=== PATIENT | female | born 1930 | race Caucasian/White ===

== ENCOUNTER 2017-03-21 15:27 | Emergency (ER) | payer MEDICARE ==
[~2017-03-21] VITALS: Ht 157.4 cm; Wt 52.2 kg
[~2017-03-21 15:27] MED LIST: ACTOS15 MG PO; ASPI-COR81 M1 PO; ASPIRIN; CALCIUM + VITA1 EAC2 PO; CAPOZIDE PO; CAPTOPRIL25 MG PO; CENTRUM SILVER1 EACH PO; CIPRO500 MG PO; GLUCOPHAGE; HUMULIN 70 U/ML10 ML SC; HUMULIN 70100 UNIT/1 SQ; HYDROCHLOROTH12.5 MG PO; INSULIN; LEVEMIR100 U/ML SC; METFORMIN500 MG PO; METOPROLOL SR100 MG PO; MINIPRESS; MINIPRESS1 M1 PO; OCUVITE1 TA1 PO; PRAVACHOL80 MG PO; ZOCOR; ZOCOR10 MG PO; [UNRECOGNIZED DRUG - OTHER]
[2017-03-21 16:12] LABS: BASO % 0.2 % (0.0-1.0); HEMATOCRIT 31.5 % (37.0-47.0); HEMOGLOBIN 10.9 g/dl (12.0-16.0); LYMPH # 0.7 10*3/uL (1.3-4.4); LYMPH % 9.1 % (27.0-41.0); MEAN CELL VOLUME 87.5 fl (81.0-99.0); MEAN CORPUSCULAR HGB 30.3 pg (27.0-31.0); MEAN CORPUSCULAR HGB CONC 34.6 g/dl (33.0-37.0); MEAN PLATELET VOLUME 10.4 fl (9.6-12.3); MONO # 0.6 10*3/uL (0.1-1.0); MONO % 7.5 % (3.0-9.0); NEUT # 6.6 10*3/uL (2.3-7.9); NEUT % 82.7 % (47.0-73.0); PLATELET COUNT AUTOMATED 178 10*3/uL (130-400); RED CELL DISTRI WIDTH 13.2 % (0-14.5)
[2017-03-21 16:24] LABS: ACT PARTIAL THROMBO TIME 26.3 SECONDS (20.8-31.5); INTERNATIONAL NORM RATIO 1.1 (2.0-3.5)
[2017-03-21 16:28] LABS: ALBUMIN 3.6 gm/dl (3.1-4.5); ALKALINE PHOSPHATASE 31 U/L (45-117); BUN 25 mg/dl (7-24); CHLORIDE 91 mmol/L (98-107); CPK 869 U/L (26-192); CREATININE 1.35 mg/dL (0.55-1.02); LIPASE 152 U/L (73-393); MAGNESIUM 1.6 mg/dL (1.5-2.1); POTASSIUM 3.7 mmol/L (3.5-5.1); SGOT/AST 84 IU/L (3-35); SGPT/ALT 47 U/L (12-78); SODIUM 130 mmol/L (136-145); TOTAL PROTEIN 6.6 gm/dL (6.4-8.2)
[2017-03-21 16:30] LABS: CKMB 51.9 ng/ml (0.5-3.6)
[2017-03-21 17:04] LABS: BILIRUBIN NEGATIVE (NEGATIVE); BLOOD 2+ (NEGATIVE); CLARITY CLOUDY (CLEAR); COLOR YELLOW (YELLOW); GLUCOSE TRACE (NEGATIVE); KETONE 1+ (NEGATIVE); LEUKO ESTERASE 3+ (NEGATIVE); NITRITE NEGATIVE (NEGATIVE); SPECIFIC GRAVITY 1.025 (1.005-1.030); UROBILINOGEN 0.2 E.U./dl (0.2-1.0)
[2017-03-21 17:10] LABS: BACTERIA 4+; RBC TNTC rbc/hpf (0-2); WBC TNTC wbc/hpf (0-5)
[2017-03-21 17:11] LABS: MUCOUS TRACE
[2017-03-21 19:15] VITALS: BP 105/33
== END 2017-03-21 22:22 | disposition short-term general hospital (02) ==
LOC: ED 15:27
PROVIDERS: Emergency Medicine
DX: I21.4 Non-ST elevation (NSTEMI) myocardial infarction (principal); N39.0 Urinary tract infection, site not specified; Z79.82 Long term (current) use of aspirin; Z79.899 Other long term (current) drug therapy

== ENCOUNTER 2017-05-16 18:24 | Inpatient (IN) | payer MEDICARE ==
[~2017-05-16] VITALS: Ht 157.4 cm; Wt 48.3 kg
--- NOTE | ~2017-05-16 | DS ---
[place], [place] DISCHARGE SUMMARY NAME: NGA GARAY [facility] #: [id number] UNIT #: [id number] ROOM: 422 DOCTOR: BAKARI PICKERING MD BIRTHDATE: [birth year] DOS: 05/20/2017 DIAGNOSES: 1. Diarrhea, noninfectious, possibly stress related. 2. Elevated troponin with history of recent ST elevation IN and a negative stress test in March of 2017 at [facility]. 3. Age-related cognitive decline. 4. Lactic acidosis from metformin, sepsis has been ruled out. 5. Type 2 diabetes mellitus, insulin-dependent, poorly controlled. 6. Benign hypertension. 7. History of carotid atherosclerosis, status post carotid endarterectomy. HOSPITAL COURSE: This patient is very well known to us. She was away on a trip to [facility]. Shortly after she got there, she had significant diarrhea and increased confusion, was admitted to a hospital in [facility], thought to have a UTI and was given IV fluids and adjustments in her diabetic medications. She was brought back to [facility] and admitted to the hospital on 16. After admission, the patient was placed on IV hydration for a short time. Troponin was elevated. Cardiology consultation was obtained. Lactic acidosis was noted and this could be from the metformin that she is on. Metformin was discontinued. Adjustments in medications were made. The patient is overall much improved. She is quite forgetful, but not confused. Echocardiogram showed normal LV function with evidence of tricuspid regurg and mitral regurg and concentric LVH. ESR is normal. Stool cultures and C. difficile titers have all come back negative. The patient is overall stable. Social service has been consulted for skilled placement. PT/OT has worked with her and feels that the patient is a candidate for fpc home. The plan is to discharge her to [facility] today. DISCHARGE MEDICATIONS: Tradjenta 5 mg at noon, 70/30 insulin 15 units in the morning and 10 units in the evening, that medication is only for 4 more days, Zocor 20 daily, Minipress 1 mg t.i.d., Protonix 40 daily, metoprolol 25 b.i.d., Plavix 75 daily, aspirin 81 mg daily. DISCHARGE INSTRUCTIONS : ADA diet, 1800 calorie. PT, OT consultation. Blood sugars to be checked twice daily, coverage scale. [place], [place] DISCHARGE SUMMARY NAME: NGA GARAY UNIT #: [id number] ROOM: 422 DOCTOR: BAKARI PICKERING MD BIRTHDATE: [birth year] BAKARI PICKERING MD CM:DISCHOLLIE [id number] BAKARI PICKERING MD 05/20/17 1252 interface
--- NOTE | ~2017-05-16 | PR ---
[place], [place] PROGRESS NOTE NAME: NGA GARAY [facility] #: [id number] UNIT #: [id number] ROOM: 422 DOCTOR: RAD BAEZMURRAYSUZY BIRTHDATE: [birth year] DOS: SUBJECTIVE: The patient is sitting up in chair. Denies any specific cardiac complaint. No chest pain. No chest pressure. No heaviness. No tightness. No symptomatic palpitation. OBJECTIVE: VITAL SIGNS: Blood pressure 171/51, previous blood pressure 115/52 and prior to that 128/49, heart rate 64, respiratory rate of 14, temperature 97.7 and T-max is 97.72. NECK: Good carotid upstroke with bruits could be heard over both carotids. HEART: S1, S2 with significant systolic ejection murmur at right upper sternal border, radiating towards the neck. Holosystolic murmur at left lower sternal border, plus present S4 gallop. No rub. No sternal heave. CHEST AND BACK: No deformities. LUNGS: Significant decrease in air movement, but no wheezing or rales. ABDOMEN: Soft, nontender, present very active bowel sounds. EXTREMITIES: Lower extremities, no edema. LABORATORY DATA: White count 5.3, hemoglobin 12.8. Lactic acid is 1.0. There are elevated lymphocytes. Sodium 135, potassium 4.4. GFR more than 60%. ASSESSMENT AND PLAN: Current presentation with diarrhea in a patient who just came back from [facility]. Apparently, the patient was in _[facility] on [place] for complaint of altered mental status, records were reviewed. The patient was treated for non-ST elevation myocardial infarction, with an echocardiogram showing normal left ventricular function, but moderate severe aortic regurgitation. There was also a stress test, which was negative for any evidence of ischemia. The patient today from the Cardiology point of view appears to be doing relatively well. The elevated troponin most likely still at the tail end of previously noted lab data. The patient has no active cardiac complaint. The repeat echocardiogram is showing no new wall motion abnormalities. The patient's vital sign does not tolerate further titration of beta marsha. The patient will need followup with Dr. Thorne as an outpatient or here [facility] within a week to two upon discharge. No further cardiac testing at this time. The patient is a good candidate for outpatient physical therapy or rehabilitation. [place], [place] PROGRESS NOTE NAME: NGA GARAY UNIT #: [id number] ROOM: 422 DOCTOR: FRANCHESCA LEROY MD BIRTHDATE: [birth year] FRANCHESCA LEROY MD CM:PNSONYA [phone] FRANCHESCA LEROY MD 05/18/171841 interface
--- NOTE | ~2017-05-16 | PR ---
[place], [place] PROGRESS NOTE [id number] UNIT #: [id number] ROOM: 422 DOCTOR: BAKARI PICKERING MD BIRTHDATE: [birth year] DOS: 05/20/2017 SUBJECTIVE: The patient is not having any new complaint today. She is pleasant, but quite forgetful about the events from yesterday evening. She does not remember her blood sugar this morning. OBJECTIVE: VITAL SIGNS: Blood pressure is 150/51, pulse of 64, respirations 18, temperature 97.5. LUNGS: Diminished breath sounds, clear. HEART: Regular. ABDOMEN: Soft. EXTREMITIES: Without any edema. LABORATORY DATA: Blood culture shows no bacterial growth. ESR is 2. Lactic acid is normal. Troponin is normalized. Stool cultures negative. C. diff titers are negative. ASSESSMENT AND PLAN: 1. Diarrhea, most likely noninfectious, possibly stress related, even change in food and environment. The patient is stable right now, has not had any diarrhea since admission. 2. Lactic acidosis, most likely from metformin that was discontinued. Lactic acid has normalized. There is no evidence of sepsis. 3. Type 2 diabetes mellitus, insulin-dependent, poorly controlled, while away on a trip it is much improved. Further adjustments in meds will be made. BAKARI PICKERING MD CM:PNTRANS [id number] BAKARI PICKERING MD 05/21/17 0108 interface
--- NOTE | ~2017-05-16 | WRIGHTHP ---
[place], [place] PATIENT HISTORY AND PHYSICAL EXAM NAME: [facility]GA GARAY [facility] #: [id number] UNIT #: [id number] ROOM: 422 DOCTOR: BAKARI PICKERING MD BIRTHDATE: [birth year] DOS: 05/16/2017 HISTORY OF PRESENT ILLNESS: This patient is very well known to us. She is 87-year-old. On May 05, she went on a trip to [facility]. She landed in [facility] without any problems. She drove to [facility] to participate in a [employer]. While there, she developed significant diarrhea, uncontrollable as per the patient's sister who was visiting [facility] with her. She was later transferred back to [facility] and was admitted to hospital there in the ICU. She was found to have possibility of UTI, poorly controlled diabetes and diarrhea. She was treated with insulin, IV fluids and [place] was [place] back [place], arrived with nursing staff from the international organization that was helping her with her travel. She arrived at the [employer], was transferred to [facility], was brought to [facility] this morning and the patient was found to have lactic acidosis and possible sepsis. The patient this morning is pleasant and does recognize me, but does not remember the details of what happened to her during the last few days. She says that the food was different and she is happy to have some breakfast this morning. She apparently did have diarrhea during the night, but none this morning. She denies having any chest pains or palpitations, does not have any abdominal pain, any nausea, any emesis. PAST MEDICAL HISTORY: Significant for: 1. Type 2 diabetes mellitus, controlled. 2. UTI with hospitalization in March 2017. 3. Age-related cognitive decline. 4. Recent non-ST elevation IN. 5. Benign hypertension. 6. Carotid atherosclerosis, status post carotid endarterectomy. 7. History of hysterectomy. MEDICATIONS: That the patient is currently on are aspirin 81, Plavix 75, metformin 500 b.i.d., metoprolol 25 b.i.d., Protonix 40 daily, Minipress 1 mg t.i.d. and insulin. SOCIAL HISTORY: Nonsmoker, does not use any alcohol. Lives at home. PHYSICAL EXAMINATION: GENERAL: She is awake and alert, oriented to person, but not to place or time. VITAL SIGNS: Blood pressure is 132/82, pulse is 63, respirations 16, temperature 95.5. LUNGS: Diminished breath sounds. No wheezes, rales or rhonchi heard. HEART: Regular. ABDOMEN: Obese, soft, nontender. EXTREMITIES: Without any edema. ASSESSMENT AND PLAN: 1. The patient admitted with lactic acidosis, possibly sepsis, possibly from metformin. The patient will have blood cultures, urine cultures, stool studies done, has been placed on IV fluids. 2. Type 2 diabetes mellitus with hypoglycemia. We will discontinue her metformin and insulin and the patient will be started on coverage scale. [place], [place] PATIENT HISTORY AND PHYSICAL EXAM NAME: NGA GARAY UNIT #: [id number] ROOM: 422 DOCTOR: BAKARI PICKERING MD BIRTHDATE: [birth year] 3. Metabolic encephalopathy, possibly multifactorial. A CT scan of the head was negative. I am hoping the confusion will improve slowly once the patient becomes more stable, but may require PT, OT consultation and a short-term rehabilitation. 4. Benign hypertension, controlled. Continue close followup. BAKARI PICKERING MD CM:HISPHYS:PATIENT HISTORY AND PHYSICAL EXAMINATION 8 0 BAKARI PICKERING MD 05/17/17931 interface
--- NOTE | ~2017-05-16 | PR ---
[place], [place] PROGRESS NOTE [id number] UNIT #: [id number] ROOM: 422 DOCTOR: BAKARI PICKERING MD BIRTHDATE: [birth year] DOS: 05/19/2017 SUBJECTIVE: The patient looks much better, does not have any complaints. Pleasant, in no distress. OBJECTIVE: VITAL SIGNS: Graphic trend shows pressure 136/54, pulse of 78, respirations 18, temperature 97.2. LUNGS: Clear. HEART: Regular. ABDOMEN: Soft. EXTREMITIES: Without any edema. ASSESSMENT AND PLAN: 1. Diarrhea, most likely noninfectious, most likely from stress and change in her diet on the [place]. The patient has not had any diarrhea since admission. 2. Elevated troponin. The patient did have a stress test, which was negative last month stress test planned. 3. Adult failure to thrive, to go to [facility] tomorrow after the 3-day stay is over. 4. Type 2 diabetes mellitus, controlled. BAKARI PICKERING MD CM:PNTRANS [phone] BAKARI PICKERING MD 05/20/17 0547 interface
--- NOTE | ~2017-05-16 | PR ---
[place], [place] PROGRESS NOTE NAME: NGA GARAY UNIT #: [id number] ROOM: 422 DOCTOR: BAKARI PICKERING MD BIRTHDATE: [birth year] DOS: SUBJECTIVE: The patient feels better. She says that she has been eating. Denies having any chest pains or palpitations. OBJECTIVE: VITAL SIGNS: Graphic trend shows blood pressure 171/60, pulse of 64, respirations 18, temperature 97.7. LUNGS: Diminished breath sounds. No wheezes, rales or rhonchi heard. HEART: Regular. ABDOMEN: Soft, scaphoid, nontender. EXTREMITIES: Without any edema. ASSESSMENT AND PLAN: 1. Adult failure to thrive. The patient to go to rehabilitation. Social service has been consulted. PT/OT did see her and suggested the same. 3. Diarrhea, most likely not infectious, seems to be resolving. 4. Lactic acidosis, possibly from metformin. Sepsis has been ruled out with negative cultures. 5. Benign hypertension with concentric left ventricular hypertrophy. Pressures are controlled. Maintain medications. 6. Moderate AI and mild aortic ____ noted on the echo. 7. Type 2 diabetes mellitus, insulin-dependent. Blood sugars have some ups and downs here. Restart some of her hold medications, but avoid metformin. BAKARI PICKERING MD CM:PNTRANS [phone] BAKARI PICKERING MD 05/18/17 0859 interface
[2017-05-16 18:53] VITALS: BP 149/60
[2017-05-16 19:25] LABS: BASO % 0.4 % (0.0-1.0); EOS % 0.4 % (1.0-4.0); HEMATOCRIT 40.6 % (37.0-47.0); LYMPH # 0.8 10*3/uL (1.3-4.4); LYMPH % 9.8 % (27.0-41.0); MEAN CELL VOLUME 85.7 fl (81.0-99.0); MEAN CORPUSCULAR HGB 29.5 pg (27.0-31.0); MEAN CORPUSCULAR HGB CONC 34.5 g/dl (33.0-37.0); MEAN PLATELET VOLUME 11.1 fl (9.6-12.3); MONO # 0.8 10*3/uL (0.1-1.0); MONO % 9.6 % (3.0-9.0); NEUT # 6.3 10*3/uL (2.3-7.9); NEUT % 79.3 % (47.0-73.0); PLATELET COUNT AUTOMATED 192 10*3/uL (130-400); RED BLOOD COUNT 4.74 10*6/uL (4.10-5.10); RED CELL DISTRI WIDTH 13.1 % (0-14.5)
--- NOTE | 2017-05-16 19:40 | NUR ---
LAB CALLED WITH CRITICAL VALUE OF LACTIC ACID 4.1. NOTIFIED.
[2017-05-16 19:46] LABS: ALBUMIN 3.7 gm/dl (3.1-4.5); ALKALINE PHOSPHATASE 41 U/L (45-117); BUN 21 mg/dl (7-24); CHLORIDE 96 mmol/L (98-107); CREATININE 0.94 mg/dL (0.55-1.02); POTASSIUM 4.5 mmol/L (3.5-5.1); SGOT/AST 28 IU/L (3-35); SGPT/ALT 47 U/L (12-78); SODIUM 133 mmol/L (136-145); TOTAL PROTEIN 7.3 gm/dL (6.4-8.2)
[2017-05-16 19:47] LABS: ACETAMINOPHEN (TYLENOL) < 2.0 ug/ml (10-30); ETHYL ALCOHOL < 3.0 mg/dl (<3)
--- NOTE | 2017-05-16 19:50 | NUR ---
ABG OBTAINED FROM LR SITE. 1 ATTEMPT. POSITIVE ALLENS TEST. AREA QUALITY COMPLIANCE COORDINATOR PER POLICY, WELL APPLIED PRESSURE AND BANDAGING AFTER THE SPECIMEN WAS OBTAINED.
[2017-05-16 19:52] LABS: TROPONIN I 0.062 ng/ml (<0.045)
--- NOTE | 2017-05-16 19:52 | NUR ---
LAB CALLED WITH CRITICAL VALUE OF TROPONIN 0.062. NOTIFIED
[2017-05-16 20:25] LABS: ABG BASE EXCESS 1.5 mmol/L (-2.0-2.0); ABG HCO3 24.1 mmol/l (22-26); ABG O2 SATURATION 97.4 % (95-97); ARTERIAL BLOOD GAS PCO2 31.6 mmHg (35-45); ARTERIAL BLOOD GAS PH 7.49 (7.35-7.45)
[2017-05-16 20:40] VITALS: BP 154/76
[2017-05-16 20:49] LABS: BILIRUBIN NEGATIVE (NEGATIVE); BLOOD NEGATIVE (NEGATIVE); CLARITY SL CLOUDY (CLEAR); COLOR YELLOW (YELLOW); GLUCOSE 1+ (NEGATIVE); KETONE TRACE (NEGATIVE); LEUKO ESTERASE NEGATIVE (NEGATIVE); NITRITE NEGATIVE (NEGATIVE); PH 5.5 (5.0-9.0); SPECIFIC GRAVITY 1.025 (1.005-1.030); UROBILINOGEN 0.2 E.U./dl (0.2-1.0)
[2017-05-16 20:58] LABS: BACTERIA TRACE; EPITHELIAL CELLS 0-2; MUCOUS 1+; RBC 0-2 rbc/hpf (0-2); URINE AMPHETAMINES < 1000 (1000ng/ml); URINE BARBITURATES < 200 (200ng/ml); URINE BENZODIAZEPINES < 200 (200ng/ml); URINE CANNABINOIDS (THC) < 50 (50ng/ml); URINE COCAINE < 300 (300ng/ml); URINE METHADONE < 300 (300ng/ml); URINE OPIATES < 300 (300ng/ml)
[2017-05-16 20:59] LABS: URINE PHENCYCLIDINE < 25 (25ng/ml)
[2017-05-16 22:16] VITALS: BP 136/54
--- NOTE | 2017-05-16 22:18 | NUR ---
NURSE TO CALL BACK FOR REPORT ON PATIENT ONCE THEY ARE AWARE THEY ARE RECEIVING INPATIENT ROOM 422
--- NOTE | 2017-05-16 22:48 | NUR ---
PT STABLE AND READY FOR TRANSPORT TO INPATIENT ROOM. REPORT GIVEN TO [facility] AT BEDSIDE.
[2017-05-16 22:50] VITALS: BP 181/59
--- NOTE | 2017-05-16 22:50 | NUR ---
A 87, admitted to , under the services of Dr. SUZAN BAEZ,BELEN Caraballo with a diagnosis of ELEVATED TROPONIN AND LACTIC ACIDOSIS. Chief complaint is CAME IN AFTER RETURNING FROM TRIP TO [place] FOR EVAL . Patient arrived via stretcher from ER. Monitor applied. Initial assessment completed. Vital signs taken and recorded. DR. SUZAN BAEZ,BELEN Caraballo notified of admission to the unit. Orders received. See assessment for past medical history, medications and allergies. Patient and/or family oriented to unit. [facility] visitation policy reviewed. Clothing/patient valuable form completed. KAITLYN ZAIDI
--- NOTE | 2017-05-16 23:10 | NUR ---
THERE ARE 2 LISTS OF MEDICATION. SHE USES [facility]. DTR JOCELYNN WILL BE HERE IN AM AND WILL PROVIDE MED LIST THEN.
--- NOTE | 2017-05-17 00:25 | NUR ---
DR. MARES NOTIFIED OF CRITICAL LACTIC ACID OF 3.0
[2017-05-17] MEDS ORDERED: PLAVIX75 M1 PO (00:29)
[2017-05-17] MEDS ORDERED: PANTOPRAZOLE SO40 MG PO (00:30)
[2017-05-17] MEDS ORDERED: LOPRESSOR25 MG PO (00:31)
[2017-05-17 03:30] VITALS: BP 140/54
--- NOTE | 2017-05-17 05:04 | NUR ---
DR. LACKEY NOTIFIED OF CONSULT AND ELEVATED TROPONIN OF 0.050. WILL SEE PATIENT THIS AM
--- NOTE | 2017-05-17 06:20 | NUR ---
PATIENT MEDICATED WITH D 50 FOR CRITICAL LOW BLOOD SUGAR.
--- NOTE | 2017-05-17 06:38 | NUR ---
BLOOD SUGAR REFLEX WAS 40. CALL MADE TO DR. MARES.
--- NOTE | 2017-05-17 06:45 | NUR ---
DR. MARES RETURNED CALL. NOTIFIED OF CRITICAL LOW BLOOD SUGAR. ORDERS RECEIVED.
[2017-05-17 08:00] VITALS: BP 132/82
--- NOTE | 2017-05-17 08:00 | NUR ---
PATIENT GIVEN WARM BLANKETS AND TEMP OF THE ROOM TURNED UP WILL RECHECK TEMP
--- NOTE | 2017-05-17 09:00 | NUR ---
PATIENT TEMP 96.8
[2017-05-17] MEDS ORDERED: ZOCOR10 MG PO (10:56)
[2017-05-17] MEDS ORDERED: CAPTOPRIL-HCTZ1 EAC3 PO (10:56)
[2017-05-17] MEDS ORDERED: METFORMIN500 MG PO (10:57)
--- NOTE | 2017-05-17 11:01 | NUR ---
attempted to call patients daughter Liliana to discuss discharge plans for this patient, unable to contact. will follow
--- NOTE | 2017-05-17 11:15 | NUR ---
PATIENT TEMP 97.9
--- NOTE | 2017-05-17 11:24 | NUR ---
LAB CALLED WITH CRITICAL LAB OF ELEVATED TROPONIN OF0.[address] PICKERING
[2017-05-17 12:00] VITALS: BP 146/64
--- NOTE | 2017-05-17 13:18 | NUR ---
PHYSICAL THERAPY PAtient evaluated on 4, full evaluation to follow. Continue with PT as per plan of care with fall, ill from [place] trip, acute debility and mod (A) precautions. PAtient high complexity via chart review, tests and evaluation: 36727. May require SNF versus in-patient rehab for impaired mobility. Thank you for this referral. Nakita Sow,PT
--- NOTE | 2017-05-17 13:46 | NUR ---
attempted to call daughter of patient again, unable to contact. Left detailed message, waiting for return call
--- NOTE | 2017-05-17 14:30 | NUR ---
event planner in to see patient to discuss discharge planning. discussed order for snf placement, provided list of facilities, patient requested referral to [facility]. Contacted Jacinda and faxed referral. Waiting on acceptance, will require 3 night stay.
[2017-05-17 16:00] VITALS: BP 125/69
--- NOTE | 2017-05-17 18:49 | NUR ---
Pt family states pt is sweaty, requesting bsg be checked. Result fo 64 obtained. Pt given OJ, crackers and peanut butter.
[2017-05-17 20:00] VITALS: BP 128/49
[2017-05-18] VITALS: BP 159/52
[2017-05-18 07:15] LABS: BASO # 0.1 10*3/uL (0.0-0.1); BASO % 0.9 % (0.0-1.0); EOS # 0.1 10*3/uL (0.0-0.4); EOS % 1.1 % (1.0-4.0); HEMATOCRIT 37.7 % (37.0-47.0); HEMOGLOBIN 12.8 g/dl (12.0-16.0); LYMPH # 1.1 10*3/uL (1.3-4.4); LYMPH % 21.6 % (27.0-41.0); MEAN CELL VOLUME 86.3 fl (81.0-99.0); MEAN CORPUSCULAR HGB 29.3 pg (27.0-31.0); MEAN PLATELET VOLUME 11.3 fl (9.6-12.3); MONO # 0.7 10*3/uL (0.1-1.0); MONO % 12.9 % (3.0-9.0); NEUT # 3.3 10*3/uL (2.3-7.9); NEUT % 62.9 % (47.0-73.0); PLATELET COUNT AUTOMATED 169 10*3/uL (130-400); RED BLOOD COUNT 4.37 10*6/uL (4.10-5.10); WHITE BLOOD COUNT 5.3 10*3/uL (4.8-10.8)
[2017-05-18 07:47] LABS: CHLORIDE 100 mmol/L (98-107); POTASSIUM 4.4 mmol/L (3.5-5.1); SODIUM 135 mmol/L (136-145)
[2017-05-18 07:50] LABS: BUN 14 mg/dl (7-24); CREATININE 0.62 mg/dL (0.55-1.02)
[2017-05-18 08:00] VITALS: BP 171/60
[2017-05-18] MEDS ORDERED: ATOVAQUONE-PRO1 EAC1 PO (11:28)
[2017-05-18 12:00] VITALS: BP 173/61
[2017-05-18 16:00] VITALS: BP 131/51
--- NOTE | 2017-05-18 19:40 | NUR ---
PT DENIES ANY FURTHER DIARRHEA AND URINARY FREQUENCY/DYSURIA. WILL CONTINUE TO MONITOR. CALL LIGHT IN REACH.
[2017-05-18 20:00] VITALS: BP 124/48
--- NOTE | 2017-05-18 21:48 | NUR ---
PT GIVEN OJ PER REQUEST FOR BS OF 57. PT DENIES ANY S/S OF HYPOGLYCEMIA. PT HAD JUST EATEN HS SNACK OF COTTAGE CHEESE AND CRACKERS. WILL CONT. TO MONITOR.
[2017-05-19] VITALS: BP 119/50
--- NOTE | 2017-05-19 03:14 | NUR ---
24 HR chart check completed.
--- NOTE | 2017-05-19 06:48 | NUR ---
PT RESTING QUIETLY IN BED. NO S/S OF DISTRESS NOTED.
[2017-05-19 08:00] VITALS: BP 136/54
[2017-05-19 12:00] VITALS: BP 147/54
[2017-05-19 16:00] VITALS: BP 95/44
[2017-05-19 20:00] VITALS: BP 112/62
[2017-05-20] VITALS: BP 150/51
[2017-05-20 08:00] VITALS: BP 168/52
[2017-05-20] MEDS ORDERED: ASPIRIN CHEWABL81 M1 PO (08:15)
[2017-05-20] MEDS ORDERED: PANTOPRAZOLE SO40 MG PO (08:15)
[2017-05-20] MEDS ORDERED: LOPRESSOR25 MG PO (08:15)
--- NOTE | 2017-05-20 11:40 | NUR ---
PHYSICAL THERAPY Patient seen this am 1:1 for therapy supine in bed with several of her daughers present. Patient reports no new c/o's upon therapist arrival and transfers sup to sit EOB, CGA x 1. Patient performed seated B LE therex, all planes, x 15 reps each to increase LE strength, while tolerating EOB sit without c/o. Patient transfered sit to stand, Min/CGA, and able to collect herself without LOB, then ambulating 45'x 1 with use of wh walker, demonstrating slow, steady tiny, even stride, and mild fatigue. Patient returned to supine in bed and remained with call light, telephone and tray table. Patient also required v/c for safe stand to sit EOB to avoid "plopping" down and will continue per POC as tolerated. Vladimir Lira, CAFE ASSOCIATE
--- NOTE | 2017-05-20 14:43 | NUR ---
Patient has red, blanchable areas to her groin and buttocks. No odor noted. Non drainage noted. Patient denied pain at time of assessment. Recommended treatment: Nystatin cream to areas
--- NOTE | 2017-05-20 15:39 | NUR ---
Discharge instructions reviewed with patient/family. Patient receptive and verbalizes understanding. Follow-up care arranged. Written instructions given to patient/family. PATIENT TAKEN OFF FLOOR BY WHEELCHAIR. FAMILY HERE TO TRANSPORT TO [facility]. REPORT GIVEN TO [facility]. HEPLOCK AND CARPENTER AND JOINER REMOVED. JORGE HARRINGTON
--- NOTE | 2017-05-20 15:57 | NUR ---
Spoke with Dr. White regarding wound care recommendations and orders were changed.
--- NOTE | 2017-05-21 08:02 | NUR ---
PHYSICAL THERAPY CO-SIGN I approve of the Phyical Therapy notes written above. ALVARO POWERS PT
== END 2017-05-20 15:39 | disposition other institution (70) | DRG 391 ==
LOC: ED 18:24 → EDHOLD 22:07 → 4E 22:07
PROVIDERS: Student in an Organized Health Care Education/Training Program; ADMIT Internal Medicine
DX: K52.89 Other specified noninfective gastroenteritis and colitis (principal); G93.41 Metabolic encephalopathy; E87.2 Acidosis; E11.649 Type 2 diabetes mellitus with hypoglycemia without coma; E11.51 Type 2 diabetes mellitus with diabetic peripheral angiopathy without gangrene; I44.7 Left bundle-branch block, unspecified; E11.65 Type 2 diabetes mellitus with hyperglycemia; I08.1 Rheumatic disorders of both mitral and tricuspid valves; I10 Essential (primary) hypertension; R62.7 Adult failure to thrive; T38.3X5A Adverse effect of insulin and oral hypoglycemic [antidiabetic] drugs, initial encounter; Z79.899 Other long term (current) drug therapy; I25.2 Old myocardial infarction; Z79.82 Long term (current) use of aspirin; Z82.49 Family history of ischemic heart disease and other diseases of the circulatory system; Z79.4 Long term (current) use of insulin; Z79.84 Long term (current) use of oral hypoglycemic drugs; Z90.710 Acquired absence of both cervix and uterus; Z87.440 Personal history of urinary (tract) infections; Z88.8 Allergy status to other drugs, medicaments and biological substances

== ENCOUNTER 2017-05-27 05:25 | Emergency (ER) | payer MEDICARE ==
[~2017-05-27] VITALS: Ht 157.4 cm; Wt 54.4 kg
[~2017-05-27 05:25] MED LIST changes: +ASPIRIN CHEWABL81 M1 PO; +ATOVAQUONE-PRO1 EAC1 PO; +CAPTOPRIL-HCTZ1 EAC3 PO; +LOPRESSOR25 MG PO; +PANTOPRAZOLE SO40 MG PO; +PLAVIX75 M1 PO
[2017-05-27] MEDS ORDERED: GLUCAGON EMERGEN1 M1 IJ (05:39)
[2017-05-27] MEDS ORDERED: NOVOLOG10 ML IV (05:41)
[2017-05-27 05:49] LABS: BASO % 0.8 % (0.0-1.0); EOS % 0.4 % (1.0-4.0); HEMATOCRIT 38.9 % (37.0-47.0); HEMOGLOBIN 12.8 g/dl (12.0-16.0); LYMPH % 19.8 % (27.0-41.0); MEAN CELL VOLUME 87.8 fl (81.0-99.0); MEAN CORPUSCULAR HGB 28.9 pg (27.0-31.0); MEAN CORPUSCULAR HGB CONC 32.9 g/dl (33.0-37.0); MEAN PLATELET VOLUME 10.7 fl (9.6-12.3); MONO # 0.4 10*3/uL (0.1-1.0); MONO % 7.7 % (3.0-9.0); NEUT # 3.5 10*3/uL (2.3-7.9); NEUT % 70.7 % (47.0-73.0); PLATELET COUNT AUTOMATED 196 10*3/uL (130-400); RED BLOOD COUNT 4.43 10*6/uL (4.10-5.10); RED CELL DISTRI WIDTH 13.5 % (0-14.5); WHITE BLOOD COUNT 4.9 10*3/uL (4.8-10.8)
[2017-05-27 06:05] LABS: ALBUMIN 3.6 gm/dl (3.1-4.5); ALKALINE PHOSPHATASE 37 U/L (45-117); BUN 16 mg/dl (7-24); CHLORIDE 100 mmol/L (98-107); SGOT/AST 32 IU/L (3-35); SGPT/ALT 38 U/L (12-78); SODIUM 136 mmol/L (136-145); TOTAL PROTEIN 7.4 gm/dL (6.4-8.2)
[2017-05-27 06:06] LABS: TROPONIN I < 0.015 ng/ml (<0.045)
[2017-05-27 06:09] LABS: BILIRUBIN NEGATIVE (NEGATIVE); BLOOD NEGATIVE (NEGATIVE); CLARITY SL CLOUDY (CLEAR); COLOR YELLOW (YELLOW); GLUCOSE 1+ (NEGATIVE); KETONE NEGATIVE (NEGATIVE); LEUKO ESTERASE TRACE (NEGATIVE); NITRITE NEGATIVE (NEGATIVE); PH 7.5 (5.0-9.0); UROBILINOGEN 0.2 E.U./dl (0.2-1.0)
[2017-05-27 06:44] LABS: BACTERIA 3+
[2017-05-27 08:58] VITALS: BP 177/91
== END 2017-05-27 09:46 | disposition home or self-care (01) ==
LOC: ED 05:25
PROVIDERS: Emergency Medicine Emergency Medical Services
DX: S00.03XA Contusion of scalp, initial encounter (principal); E11.649 Type 2 diabetes mellitus with hypoglycemia without coma; I10 Essential (primary) hypertension; Z79.82 Long term (current) use of aspirin; Z79.4 Long term (current) use of insulin; Z79.899 Other long term (current) drug therapy; W19.XXXA Unspecified fall, initial encounter; Y93.89 Activity, other specified; Y92.129 Unspecified place in nursing home as the place of occurrence of the external cause; Y99.8 Other external cause status

== ENCOUNTER 2017-08-23 16:03 | Inpatient (IN) | payer MEDICARE ==
[~2017-08-23] VITALS: Ht 157.4 cm; Wt 59.9 kg
[2017-08-23] VITALS (15 sets, daily range): BP systolic 162–218; BP diastolic 75–98
--- NOTE | ~2017-08-23 | CON ---
[place], [place] REPORT OF CONSULTATION NAME: NGA GARAY UNIT #: [id number] ROOM: 509 DOCTOR: DELTA TONEY MD BIRTHDATE: [birth year] DOS: 08/24/2017 REASON FOR CONSULTATION: Elevated troponin. HISTORY OF PRESENT ILLNESS: The patient is an 87-year-old woman who does have a history of a non-ST elevation myocardial infarction in the fall of 2016. She presented at that time with the urinary tract infection and confusion, but her troponin ann-marie dramatically. In addition, she developed a new left bundle branch block during that hospitalization. She was transferred to the [facility] where her urinary tract infection was treated and she improved. A pharmacologic stress test on 03/24/2017 showed an ejection fraction of 67% and no ischemia, so she was managed medically. She has never had any chest pain. She was, otherwise, well until she noted worsening dyspnea for the last few days. She was brought to the Emergency Room on 08/23/2017 and was noted to have infiltrates on her chest x-ray consistent with pneumonia along with small pleural effusions. She was hospitalized and serial troponin levels have shown a mild elevation of troponin with a peak of 0.132 and subsequent measurements of 0.108, 0.122 and 0.114. She has not had any chest pain with this. We were asked to see her to help determine the cause of her troponin elevation. PAST MEDICAL HISTORY: Includes the followin. Type 2 diabetes mellitus. Current hemoglobin A1c is 8.5. 2. Poorly controlled hypertension. 3. Carotid atherosclerosis, status post left carotid endarterectomy. 4. Left ventricular hypertrophy demonstrated on echo 05/17/2017 which showed severe LVH and stage 1 diastolic dysfunction. Ejection fraction at that time was 75%. She did have moderate aortic insufficiency and possibly moderate aortic stenosis. 5. No history of previous heart failure or stroke. MEDICATIONS: Prior to admission included NovoLog insulin by sliding scale, aspirin 81 mg per day, clopidogrel 75 mg per day, lisinopril 5 mg per day, metoprolol 25 mg b.i.d., pantoprazole 40 mg daily, prazosin 1 mg t.i.d., and Humulin 70/30 insulin 22 units in the morning and 14 units in the evening. ALLERGIES: SHE LISTS ALLERGIES TO LEVEMIR INSULIN. FAMILY HISTORY: Negative for early coronary artery disease. REVIEW OF SYSTEMS: The patient denies diplopia or loss of vision. She denies lightheadedness or syncope. She has had no fevers, chills or sweats. She has a minimal cough. She does have a progressive shortness of breath over the last several days. She denies nausea or vomiting. She denies any focal weakness. She denies change in bowel or bladder habits and denies blood in her stools or urine. She denies any abdominal pain or cramping. She denies any skin rashes. She has had worsening swelling of her legs for the last several days. Remainder of the review of systems is negative except as noted above. SOCIAL HISTORY: The patient lives in assisted living. She does not smoke, use [place], [place] REPORT OF CONSULTATION NAME: NGA GARAY UNIT #: [id number] ROOM: [facility] DOCTOR: DELTA TONEY MD BIRTHDATE: [birth year] illicit drugs or consume alcohol. PHYSICAL EXAMINATION: GENERAL: The patient is an elderly white female who is awake, alert and oriented. VITAL SIGNS: Pulse is 86 and regular, blood pressure is 187/57. She is afebrile. She weighs 59.9 kg and has a body mass index of 24.2. HEENT: Normocephalic and atraumatic. Extraocular muscles are intact. Sclerae are clear. Pupils are equal, round and react to light. Oral mucosa is moist. Tongue is midline. NECK: Supple. She does have jugular distention, almost to the angle of the jaw when sitting in a 45-degree angle. She does have hepatojugular reflux. Carotids are full and I heard no bruits. She has a well-healed left carotid endarterectomy scar. She has no neck or supraclavicular masses, no thyromegaly. LUNGS: Respirations are tachypneic. She does have bibasilar crackles. She has no presacral edema or chest wall tenderness. There were no wheezes. CARDIOVASCULAR: Her heart had a regular rhythm. She had a fourth heart sound, but no third heart sound. She has a loud grade 4/6 late peaking systolic ejection murmur along the left sternal border radiating toward the base. No diastolic murmurs are heard. She has normal first and second heart sounds. There is no precordial heave, lift or thrill. ABDOMEN: Soft and normally active without masses, organomegaly or bruits. EXTREMITIES: Showed 2+ edema to the knees bilaterally. Pedal pulses are palpable in the feet. LABORATORY DATA: I reviewed her electrocardiogram, which showed sinus rhythm with a left bundle branch block. IMPRESSION: 1. Community-acquired pneumonia. 2. Mild elevation in troponin, most likely due to type 2 myocardial injury from the patient's pneumonia. 3. Valvular heart disease with moderate aortic stenosis, moderate aortic insufficiency and moderate tricuspid insufficiency. 4. Recent non-ST elevation myocardial infarction, 03/21/2017. Subsequent pharmacologic myocardial perfusion study on 03/24/2017 showed no ischemia and an ejection fraction of 67%. The patient has had no chest pain. 5. Essential hypertension, which is poorly controlled. 6. Type 2 diabetes mellitus. 7. 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 PLAN: I agree with diuresing the patient and will increase her furosemide dose. We will follow her renal functions and potassium levels closely. I have also increased her metoprolol and ANÍBAL inhibitor doses to help better control her blood pressure. For now, we will continue to follow her clinically. I am concerned over the fact that she has had elevations in troponin on several occasions, but her stress test less than a year ago was low risk. So for now, we will follow her clinically. I thank Dr. Lovett for asking our advice regarding the patient's care. [place], [place] REPORT OF CONSULTATION NAME: [facility] [id number] UNIT #: [id number] ROOM: 509 DOCTOR: EDLTA TONEY MD BIRTHDATE: [birth year] DELTA TONEY MD CM:CONSTR:REPORT OF CONSULTATION 1544 08/24/17 2145 interface BELEN LOVETT MD
--- NOTE | ~2017-08-23 | DS ---
[place], [place] DISCHARGE SUMMARY NAME: NGA GARAY UNIT #: [id number] ROOM: 509 DOCTOR: BELEN MARES MD BIRTHDATE: [birth year] DOS: 08/26/2017 The patient continues to breathe better. She is pleasantly confused. PHYSICAL EXAMINATION VITAL SIGNS: Blood pressure 149/42, heart rate of 61 beats per minute, breathing 16 times per minute, afebrile. GENERAL APPEARANCE: Mental confusion and generalized weakness. HEENT AND NECK: Extraocular movements are intact. Sclerae are anicteric. Oral mucosa is moist and clean. No obvious facial weakness. Neck is supple without any lymphadenopathy. No thyromegaly. No JVD. No carotid arterial bruits. LUNGS: Clear to auscultation. No wheezing. No rhonchi. CARDIOVASCULAR SYSTEM: Heart rate is regular in rate and rhythm. S1 and S2 normally audible. No significant murmur or any other abnormal cardiac sounds. ABDOMEN: Soft, nontender. No obvious organomegaly. Bowel sounds are present. No obvious herniation. EXTREMITIES: Without significant cyanosis or edema. Warm to touch. ENGINEERING AND SCIENTIFIC PROGRAMMER: Alert and oriented x3. Cranial nerves II-XII are intact. Speech is normal. The patient is able to move all extremities. Normal muscle strength. Deep tendon reflexes are equal on both sides. Plantars were downgoing. HOSPITAL COURSE: The patient with acute congestive heart failure, improved with diuresis. The patient still has residual left basilar effusion, for which Dr. Haines, the detacker is following her. Type 2 myocardial injury, related to congestive heart failure and possible pneumonitis. Acute mixed systolic, diastolic type congestive heart failure. Benign essential hypertension, with controlled blood pressures. Generalized weakness, old age and adult failure to thrive. The patient is working with Physical Therapy. Late onset Alzheimer's type dementia with some mental confusion. The patient is being monitored for falls and bedsores. Hypokalemia from diuresis, resolved with extra potassium supplements. Benign essential hypertension, with controlled blood pressures with treatment. Bilateral suspected pneumonia has resolved on the chest x-ray with treatment for congestive heart failure and also antibiotics. [place], [place] DISCHARGE SUMMARY NAME: NGA GARAY UNIT #: [id number] ROOM: 509 DOCTOR: BELEN MARES MD BIRTHDATE: [birth year] [address] Haines. He has cleared the patient for discharge with [facility]uretics [facility]. DISCHARGE DIAGNOSES: 1. Acute mixed systolic, diastolic type congestive heart failure with left basilar effusion, treated with diuretics and evaluated by Dr. Haines and Dr. Pleitez. 2. Hypokalemia from diuresis, resolved with extra potassium supplements. 3. Late onset Alzheimer's type dementia and mental confusion. 4. Benign essential hypertension, better controlled with treatment. Blood pressures need to be monitored and treatment adjusted as an outpatient. 5. Type 2 myocardial injury secondary to congestive heart failure, managed by Cardiology. 6. Generalized weakness, old age and adult failure to thrive. 7. Suspected pneumonia, resolved with antibiotics. No leukocytosis. LABORATORY DATA: Blood culture is negative. Serum electrolytes normal. Cardiac enzymes were elevated to 0.12, but improving. Hemoglobin 10.8. No leukocytosis. Repeat chest x-ray showed resolution of congestive heart failure. DISCHARGE MANAGEMENT: Lisinopril 10 mg b.i.d., furosemide 40 mg daily, potassium chloride 20 mEq daily, check basic metabolic profile in one week, 70/30 insulin subcutaneous 14 units at 1600 hours once a day and 22 units at every 8:00 a.m., Plavix 75 mg a day, aspirin 81 mg daily, Protonix 40 mg a day, prazosin 1 mg t.i.d., DuoNeb q.i.d. p.r.n. for shortness of breath. BELEN MARES MD CM:DISCHARG [id number] BELEN MARES MD 08/26/17 1315 interface
--- NOTE | ~2017-08-23 | CON ---
[place], [place] REPORT OF CONSULTATION NAME: NGA GARAY [facility] #: [id number] UNIT #: [id number] ROOM: 509 DOCTOR: FLAVIO MACHADO MD BIRTHDATE: [birth year] DOS: 08/24/2017 REQUESTING PHYSICIAN: Dr. Nitza White. REASON FOR CONSULTATION: To assess the patient's current possibility of acute pneumonia. HISTORY OF PRESENT ILLNESS: This is an 87-year-old white female patient who is currently a resident of assisted living facility at the [facility]. The patient has been brought to the hospital and currently admitted the patient has reported ongoing symptoms about 3 days. She has been noted with progressive increased shortness of breath occurring with minimal exertion. She was also noted increased edema of the lower extremities. She has not been reported any symptoms of chest pain. There were no symptoms of hemoptysis described. Nonproductive cough was reported. No symptoms of fever or chills reported. The patient does not have any acute angina pain reported. She was also noted with audible wheezing on admission described by the daughter. Some of the history has been given to me by one of the daughter present in the room. REVIEW OF SYSTEMS: CONSTITUTIONAL: Fatigue and tiredness, noted to have fever as reported. EYES: Denies any blurry vision, any discharge, pain or redness. EAR, NOSE, AND THROAT: Denies any epistaxis, hoarseness, sore throat, otalgia or earache. CARDIOVASCULAR: Denies anginal pain, edema, pain of the lower extremity, palpitation. GASTROINTESTINAL: No dysphagia, nausea, vomiting, diarrhea, abdominal pain, hematemesis, melena, hematochezia, dysphagia, or abnormal weight loss. GENITOURINARY SYMPTOMS: No dysuria, suprapubic pain, hematuria or flank pain or urinary incontinence. MUSCULOSKELETAL: Acute joint pain, redness, tenderness. SKIN: Denies abnormal lesions or rashes. MUSCULOSKELETAL: Without any acute deformities. CENTRAL NERVOUS SYSTEM: No dizziness, headache, diplopia, syncopal episode. The remaining systems were reviewed, they were noted all negative. PAST MEDICAL HISTORY: The patient was known with history of: 1. Type 2 diabetes mellitus. 2. Coronary artery disease, past non-ST segment elevation myocardial infarction. 3. Essential hypertension. 4. Noted with left ventricle ejection 75% on 05/27/2017 for this patient with aortic stenosis as well. PAST SURGICAL HISTORY: 1. Carotid endarterectomy. 2. Complete hysterectomy. 3. D and C. 4. ORIF of the right ankle. [place], [place] REPORT OF CONSULTATION NAME: NGA GARAY UNIT #: [id number] ROOM: [facility] DOCTOR: LUIS ENRIQUE POWELL MD,FLAVIO BIRTHDATE: [birth year] 5. ____. 6. Breast biopsy, there were reported as benign. SOCIAL HISTORY: The patient currently , resident of assisted living facility, has 4 children. No other children were present in the room with the patient. There was no history of alcohol use, tobacco or illicit drug use reported any occupation related pulmonary exposure. FAMILY HISTORY: The patient was noted for coronary artery disease and myocardial infarction. MEDICATIONS: Current administered medication was noted as use of a 70/30 mixture of insulin 14 units at p.m., aspirin 81 mg daily, Plavix 75 mg daily, lisinopril 5 mg daily, Protonix 40 mg daily, 70/30 mixture of insulin at 22 units in the morning, sliding insulin use, metoprolol tartrate 25 mg p.o. b.i.d., prednisone 1 mg every 8 hours, DuoNeb q.4 hours. DRUG ALLERGIES: NOTED ALLERGIC TO LEVEMIR INSULIN. PHYSICAL EXAMINATION: GENERAL: An 87-year-old female patient noted fully awake and alert at this time ____ without distress, sitting on the bed at this time. VITAL SIGNS: Height of 5 feet 2 inches, weight 132 pounds, BMI 24.1. For the patient which were recorded since admission shows the temperature was recorded as normal. The respiratory recorded as 34 the highest, lowest 20, heart rate range between 118-86, blood pressure 202/92 on admission for this patient was noted and the blood pressure of patient that were recorded this at noon at 187/57. The pulse oxygen saturation was recorded as 94%-92% saturation on room air at rest. HEENT: Head was atraumatic. Eyes nonicterus. NECK: Supple. CARDIOVASCULAR: S1, S2 audible. Pansystolic murmur of the patient and the diastolic murmur of the patient was noted at the base and all over the precordium. Mild tachycardia was also heard. LUNGS: Noted without any wheezing. Basilar crackles noted with scattered crackles without any other sounds. ABDOMEN: Noted soft, flat, nontender, bowel sounds present. EXTREMITIES: Noted with edema 1-2+. SKIN: Visible skin. No lesions or rashes. CENTRAL NERVOUS SYSTEM: Cranial nerves 2-12 intact. No focal deficit. MUSCULOSKELETAL: Without any acute deformities. LABORATORY DATA: CBC on 08/22/2017, WBC count 4.4, hemoglobin 10.8, hematocrit 33.0, platelet count 197,000. The lactic acid noted normal yesterday. PT/PTT noted normal. The troponin of 3 sets, first set is 0.108, the second 0.122, the third set 0.114 all of the 3 sets were noted mildly elevated. The chest x-ray of the patient noted with cardiomegaly with small bilateral pleural fluid, possibility of patchy basilar area of infiltration or atelectasis would be considered. [place], [place] REPORT OF CONSULTATION NAME: NGA GARAY UNIT #: [id number] ROOM: 509 DOCTOR: LUIS ENRIQUE POWELL MD,[facility] BIRTHDATE: [birth year] IMPRESSION: 1. The patient who has been currently admitted to the hospital, finding was noted most consistent with finding of acute congestive heart failure with bilateral pleural fluid and atelectasis. The pneumonia of the patient has been considered, but appears to be less likely with my personal assessment. 2. Valvular heart disease was also noted. 3. Rule out non-ST segment elevation myocardial infarction. 4. Moderate aortic stenosis. 5. Aortic stenosis as well. PLAN OF TREATMENT: The patient would not require any antibiotics. The patient's diuretics will be given to obtain Cardiology consultation. Also, obtain the new echocardiogram for the patient to assessment of the cardiac status. Other supportive therapy, plan of management and care plan. Usual treatment. Other supportive plan of therapies, care and management. Usual care. Maximize the medical management for the cardiac disease. Titrate oxygen supplementation, maintain saturation 92% or greater. The pleural fluid at this time appeared to be small, would not require any thoracentesis. Conservative treatment will be continued. If the ____ enlarged for the patient or progresses certainly thoracentesis would be considered if the conservative treatment fails to manage the pleural effusions. FLAVIO DUDLEY MD CM:CONSTR:REPORT OF CONSULTATION 1453 08/25/17 0546 interface
--- NOTE | ~2017-08-23 | PR ---
[place], [place] PROGRESS NOTE NAME: NGA GARAY [facility] #: [id number] UNIT #: [id number] ROOM: 509 DOCTOR: DELTA TONEY MD BIRTHDATE: [birth year] DOS: 08/25/2017 SUBJECTIVE: The patient was seen today, 08/25/2017, at her bedside for followup of her dyspnea and elevated troponin. She is an 87-year-old woman who has a history of non-ST elevation myocardial infarction in the fall of 2016. A stress test at that time showed an ejection fraction of 67% and no ischemia. Echocardiography has shown normal left ventricular function with moderate aortic stenosis, moderate aortic insufficiency and moderate tricuspid insufficiency. She presented to the hospital on this occasion with worsening dyspnea and peripheral edema. Her initial chest x-ray was interpreted as showing pneumonia; however, clinically she does not appear to be infected. Dr. Haines suggests that her chest x-ray appearance may be entirely due to fluid retention. She did show clinical signs of volume overload and has been diuresed for the last 24 hours. She does feel better today. PHYSICAL EXAMINATION: VITAL SIGNS: Her pulse is 60 and regular, blood pressure is 133/70. She is afebrile. She weighs 59.9 kg and has a body mass index 24.2. I and O measurements are incomplete. HEENT: Normocephalic and atraumatic. Extraocular muscles are intact. Sclerae are clear. Pupils equal, round and react to light. The oral mucosa is moist. Tongue is midline. NECK: Supple. She does not have jugular distention today. Carotids are full without bruits. LUNGS: Respirations are unlabored. She has decreased breath sounds at the bases, but I heard no dullness. She had no presacral edema. HEART: Had a regular rhythm with a fourth heart sound. She has a grade 2/6 systolic ejection murmur along the left sternal border, radiating to the base. There were no diastolic murmurs. She has a fourth heart sound and a preserved second heart sound. There is no third heart sound. ABDOMEN: Soft and normally active. EXTREMITIES: Showed 1+ edema bilaterally. She is sitting in a chair with her legs dependent at this time. LABORATORY DATA: This morning showed hemoglobin of 11 with a white count of 5400 and a platelet count of 201,000. Sodium is 138, potassium was 3.1 (subsequently replaced), chloride 98, CO2 of 32, BUN 13, creatinine 0.66. Serial troponin levels were obtained yesterday and showed a mild elevation, but no diagnostic rise and fall pattern. IMPRESSION: 1. Acute on chronic diastolic congestive heart failure. 2. Mild elevation in troponin, most likely due to a type 2 myocardial injury (demand ischemia). 3. Valvular heart disease with moderate aortic stenosis, moderate aortic insufficiency and moderate tricuspid insufficiency. 4. Recent non-ST elevation myocardial infarction, 03/21/2017. A subsequent pharmacologic myocardial perfusion study on 03/24/2017 showed no ischemia and an ejection fraction of 67%. The patient denies any chest pain at this time. 5. Essential hypertension, which has been poorly controlled. [place], [place] PROGRESS NOTE NAME: NGA GARAY UNIT #: [id number] ROOM: [facility] DOCTOR: DELTA TONEY MD BIRTHDATE: [birth year] 6. Type 2 diabetes mellitus. PLAN: We will continue to diurese the patient. I will ask that nursing staff keep better track of her intake and output. We will continue to follow her renal functions and potassium levels closely. I did increase her ANÍBAL inhibitor to help with potassium management as well as blood pressure management. We will continue to follow her clinically in the hospital. I thank Dr. Lovett for asking our advice regarding her care. DELTA TONEY MD CM:PNTRANS [id number] 15 DELTA TONEY MD 08/25/171913 interface
--- NOTE | ~2017-08-23 | PR ---
[place], [place] PROGRESS NOTE NAME: NGA GARAY [facility] #: [id number] UNIT #: [id number] ROOM: 509 DOCTOR: LUIS ENRIQUE POWELL MD,FLAVIO BIRTHDATE: [birth year] DOS: 08/25/2017 SUBJECTIVE: She has been comfortably resting, sitting on the chair this morning of assessment. She has not reported any symptoms of abdominal pain or present symptoms of nausea or vomiting. She has been given Lasix. The patient yesterday with adequate diuresis noted. Shortness of breath has been improved with that. Minimal cough for the patient noted which was dry. The patient has not been noted symptoms of abdominal pain. There were symptoms of headache. Denies symptoms of pain of the extremities or any skin rashes. Remaining systems were reviewed and they were noted all negative. OBJECTIVE: VITAL SIGNS: Normal temperature this morning, respirations 18, heart rate 73, pulse is 80, blood pressure 180-160/70. Pulse oxygen saturation of the patient recorded on 2 liters nasal cannula was 95% saturation. HEENT: Examination shows head was atraumatic. Eyes nonicterus. NECK: Supple. CARDIOVASCULAR: S1, S2 was audible. LUNGS: The patient noted decreased breath sounds in the lower portion of the lungs with occasional crackles. There was no wheezing. ABDOMEN: Soft, nontender. EXTREMITIES: Without any acute edema. VISIBLE SKIN: No lesions or rashes. MUSCULOSKELETAL: Intact. CENTRAL NERVOUS SYSTEM: Cranial nerves 2-12 intact. LABORATORY DATA: CMP today normal BUN and creatinine. Potassium 3.1. Remaining LFTs normal. CBC of the patient's hemoglobin 11, hematocrit 33.7, WBC count normal, platelet count was normal. IMPRESSION: 1. The patient with acute congestive heart failure for the patient was noted at the present time with bilateral pleural fluid. 2. Hyperkalemia related to the diuretics. 3. Uncontrolled systolic hypertension, which has been resolving. PLAN OF THERAPY: 1. Supplementation of the potassium for this patient will be ordered. Continuation of the bronchodilators and other therapy, plan of management and care. Usual treatment. There was no suspicion of pneumonia at this time, the antibiotics will be discontinued. Obtain a chest x-ray in the morning for the patient to reassess the pleural fluid or congestive heart failure resolution. 2. Aortic stenosis was also noted for the patient, which is chronic. [place], [place] PROGRESS NOTE NAME: NGA GARAY UNIT #: [id number] ROOM: 509 DOCTOR: FLAVIO MACHADO MD BIRTHDATE: [birth year] FLAVIO DUDLEY MD CM:PNTRANS [id number] FLAVIO POWELL MD 08/26/17 0028 interface
--- NOTE | ~2017-08-23 | PR ---
[place], [place] PROGRESS NOTE NAME: NGA GARAY [facility] #: [id number] UNIT #: [id number] ROOM: 509 DOCTOR: BELEN MARES MD BIRTHDATE: [birth year] DOS: 08/25/2017 SUBJECTIVE: The patient is improving, feeling stronger as compared to yesterday. OBJECTIVE: VITAL SIGNS: Blood pressure 133/70, heart rate 57 beats per minute, breathing 18 times per minute, temperature 98 degrees Fahrenheit. GENERAL APPEARANCE: Generalized weakness. HEENT AND NECK: Exam within normal limits. CARDIOVASCULAR SYSTEM: Heart rate is regular in rate and rhythm. S1 and S2 normally audible. LUNGS: Clear to auscultation. ABDOMEN: Soft, nontender. No obvious organomegaly. Bowel sounds are present. EXTREMITIES: Without significant cyanosis or edema. IMPRESSION: 1. The patient with troponin I level elevation, apparently from demand ischemia, type 2 myocardial injury related to pneumonia. 2. Pneumonia for which the patient is being treated with IV antibiotics. No leukocytosis. Blood counts and chest x-ray repeats were ordered. Blood cultures have been negative. 3. Acute mixed systolic, diastolic type congestive heart failure, treated with diuresis, serum electrolytes are being monitored. 4. Hypokalemia related to diuresis. I will give her extra potassium supplements. 5. Generalized weakness, old age and adult failure to thrive. The patient is working with physical therapy. 6. Benign essential hypertension with controlled blood pressures now. BELEN MARES MD CM:PNTRANS [id number] BELEN MARES MD 08/25/[id number] interface
--- NOTE | ~2017-08-23 | WRIGHTHP ---
[place], [place] PATIENT HISTORY AND PHYSICAL EXAM NAME: NGA GARAY [facility] #: [id number] UNIT #: [id number] ROOM: 509 DOCTOR: BELEN MARES MD BIRTHDATE: [birth year] DOS: 08/23/2017 HISTORY OF PRESENT ILLNESS: The patient is an 87-year-old female with a past medical history of: 1. Elevated troponin levels with negative stress test in March 2017. 2. Late onset Alzheimer's type dementia. 3. Type 2 diabetes mellitus, uncontrolled. 4. Benign essential hypertension. 5. Carotid artery stenosis, status post endarterectomy. 6. Mixed hyperlipidemia. 7. History of hysterectomy. 8. History of mitral valve prolapse. The patient presented to the Emergency Department at [facility] with increasing shortness of breath for a few days. The patient had some cough, shortness of breath and sputum and she was having difficulty with ambulation and dyspnea on exertion. The patient had also noticed some swelling in her feet and legs. In the ER, the patient was diagnosed as having bibasilar bronchopneumonia and bibasilar effusions with acute congestive heart failure and she was admitted for further management with a full code status. No complaints of chest pains. No other GI or urinary symptoms. REVIEW OF SYSTEMS: LUNGS: Increasing shortness of breath. GASTROINTESTINAL: No nausea, vomiting, diarrhea or constipation. CARDIOVASCULAR: No chest pain or palpitations. FAMILY HISTORY: Noncontributory. HOME MEDICATIONS: The patient was taking insulin, aspirin, Plavix, lisinopril, metoprolol, Protonix, prazosin at home. PHYSICAL EXAMINATION: GENERAL: Alert, oriented x 3, not a good historian, in no visible distress. VITAL SIGNS: Blood pressure 161/67, heart rate of 87 beats per minute, breathing 18 times per minute, temperature of 98.2 degrees Fahrenheit. HEENT AND NECK: Extraocular movements are intact. Sclerae are anicteric. Oral mucosa is moist and clean. No obvious facial weakness. Neck is supple without any lymphadenopathy. No thyromegaly. No JVD. No carotid arterial bruits. LUNGS: Clear to auscultation. No wheezing. No rhonchi. CARDIOVASCULAR SYSTEM: Heart rate is regular in rate and rhythm. S1 and S2 normally audible. No significant murmur or any other abnormal cardiac sounds. ABDOMEN: Soft, nontender. No obvious organomegaly. Bowel sounds are present. No obvious herniation. EXTREMITIES: 1-2+ leg and pedal edema. CENTRAL NERVOUS SYSTEM: Alert and oriented x 3. Cranial nerves II-XII are intact. Speech is normal. The patient is able to move all extremities. Normal muscle strength. Deep tendon reflexes are equal on both sides. Plantars were downgoing. [place], [place] PATIENT HISTORY AND PHYSICAL EX[facility] [id number] UNIT #: [id number] ROOM: [facility] DOCTOR: SUZAN BAEZ,BELEN Caraballo BIRTHDATE: [birth year] IMPRESSION: 1. The patient with minimally elevated troponin I levels for which Cardiology has been consulted and they are following her and monitoring her troponin levels. 2. Benign essential hypertension with uncontrolled blood pressures, metoprolol and lisinopril have been added. 3. Acute congestive heart failure. Echocardiogram to be ordered. The patient is being treated with IV Lasix and serum electrolytes will be monitored. 4. The patient is 87-year-old with some weakness and she had been ambulating before, so I will consult Physical Therapy to follow her. 5. Bilateral bibasilar pneumonia. The patient to be started on Zosyn and azithromycin and blood counts to be monitored. Dr. Haines, the chipping machine operator has been consulted to follow her. BELEN MARES MD CM:HISPHYS:PATIENT HISTORY AND PHYSICAL EXAMINATION [id number] BELEN MARES MD 08/24/17 1830 interface
--- NOTE | ~2017-08-23 | PR ---
[place], [place] PROGRESS NOTE NAME: NGA GARAY UNIT #: [id number] ROOM: 509 DOCTOR: FLAVIO MACHADO MD BIRTHDATE: [birth year] DOS: 08/26/2017 SUBJECTIVE: She has been noted comfortable at this time, sitting on the chair. The patient reported with resolution of cough. Shortness of breath has been improving gradually. Denies symptoms of chest pain or any abdominal pain. OBJECTIVE: VITAL SIGNS: For the patient which has been recorded shows the temperature patient noted as normal, respiratory rate 16-18, heart rate 76, blood pressure 166/65-149/42. Pulse oxygen saturation on 2 liters 95% saturation. HEENT: Examination shows no acute change. NECK: Supple. CARDIOVASCULAR: S1, S2 audible. LUNGS: The patient was noted without any wheeze or crackles. ABDOMEN: Soft, nontender. LABORATORY DATA: BMP today. CO2 35, normal potassium and BUN and creatinine. The CBC of the patient this morning, white count 4.7, hemoglobin 10.6 and hematocrit 39.6, platelet count were normal. Chest x-ray of the patient that was done today shows small left-sided pleural fluid noted with significant improvement in aeration of the lung. IMPRESSION: 1. The patient with history of aortic stenosis with congestive heart failure, which has been noted the present time, responded to the treatment, diuretic therapy. 2. Resolution of the hyperkalemia. 3. Mild leukopenia. PLAN OF TREATMENT: No change in pulmonary standpoint. Continue patient's current therapy, plan of care at this time. Cardiology assessment patient monitoring to be continued. Usual care. Supportive therapy, plan of management and other treatments. [place], [place] PROGRESS NOTE NAME: NGA GARAY UNIT #: [id number] ROOM: 509 DOCTOR: FLAVIO MACHADO MD BIRTHDATE: [birth year] FLAVIO DUDLEY MD CM:PNTRANS [phone] FLAVIO POWELL MD 08/26/17 8317 interface
[~2017-08-23 16:03] MED LIST changes: +GLUCAGON EMERGEN1 M1 IJ; +NOVOLOG10 ML IV
[2017-08-23 17:20] LABS: BASO # 0.1 10*3/uL (0.0-0.1); BASO % 1.6 % (0.0-1.0); EOS # 0.1 10*3/uL (0.0-0.4); HEMOGLOBIN 10.8 g/dl (12.0-16.0); LYMPH # 0.8 10*3/uL (1.3-4.4); LYMPH % 17.6 % (27.0-41.0); MEAN CELL VOLUME 82.3 fl (81.0-99.0); MEAN CORPUSCULAR HGB 26.9 pg (27.0-31.0); MEAN CORPUSCULAR HGB CONC 32.7 g/dl (33.0-37.0); MEAN PLATELET VOLUME 11.9 fl (9.6-12.3); MONO # 0.5 10*3/uL (0.1-1.0); MONO % 10.4 % (3.0-9.0); NEUT % 68.2 % (47.0-73.0); PLATELET COUNT AUTOMATED 197 10*3/uL (130-400); RED BLOOD COUNT 4.01 10*6/uL (4.10-5.10); RED CELL DISTRI WIDTH 13.1 % (0-14.5); WHITE BLOOD COUNT 4.4 10*3/uL (4.8-10.8)
[2017-08-23 17:37] LABS: ALBUMIN 3.6 gm/dl (3.1-4.5); ALKALINE PHOSPHATASE 60 U/L (45-117); BUN 15 mg/dl (7-24); CHLORIDE 101 mmol/L (98-107); LIPASE 89 U/L (73-393); POTASSIUM 3.9 mmol/L (3.5-5.1); SGOT/AST 48 IU/L (3-35); SGPT/ALT 48 U/L (12-78); SODIUM 137 mmol/L (136-145)
[2017-08-23 17:52] LABS: ACT PARTIAL THROMBO TIME 25.3 SECONDS (20.8-31.5); INTERNATIONAL NORM RATIO 1.1 (2.0-3.5)
[2017-08-23 17:56] LABS: TROPONIN I 0.132 ng/ml (<0.045)
[2017-08-23] MEDS ORDERED: ZESTRIL,PRINIVIL5 MG PO (21:26)
[2017-08-23] MEDS ORDERED: HUMULIN 70100 UNIT/1 SQ ×2 (21:27→21:28)
[2017-08-24 01:12] VITALS: BP 168/55
[2017-08-24 06:06] LABS: BASO # 0.1 10*3/uL (0.0-0.1); BASO % 1.6 % (0.0-1.0); EOS # 0.1 10*3/uL (0.0-0.4); EOS % 1.3 % (1.0-4.0); HEMATOCRIT 31.9 % (37.0-47.0); HEMOGLOBIN 10.2 g/dl (12.0-16.0); LYMPH # 0.9 10*3/uL (1.3-4.4); LYMPH % 20.5 % (27.0-41.0); MEAN CELL VOLUME 81.4 fl (81.0-99.0); MEAN PLATELET VOLUME 11.7 fl (9.6-12.3); MONO # 0.7 10*3/uL (0.1-1.0); NEUT # 2.8 10*3/uL (2.3-7.9); NEUT % 61.4 % (47.0-73.0); PLATELET COUNT AUTOMATED 187 10*3/uL (130-400); RED BLOOD COUNT 3.92 10*6/uL (4.10-5.10); RED CELL DISTRI WIDTH 13.2 % (0-14.5); WHITE BLOOD COUNT 4.5 10*3/uL (4.8-10.8)
[2017-08-24 08:00] VITALS: BP 214/87
[2017-08-24 09:33] VITALS: BP 161/67
[2017-08-24 12:00] VITALS: BP 187/57
[2017-08-24 16:00] VITALS: BP 250/120
[2017-08-24 18:53] VITALS: BP 174/78
[2017-08-25] VITALS: BP 160/70
[2017-08-25 07:05] LABS: BASO # 0.1 10*3/uL (0.0-0.1); BASO % 1.3 % (0.0-1.0); EOS # 0.2 10*3/uL (0.0-0.4); HEMATOCRIT 33.7 % (37.0-47.0); LYMPH # 1.3 10*3/uL (1.3-4.4); LYMPH % 23.6 % (27.0-41.0); MEAN CELL VOLUME 80.8 fl (81.0-99.0); MEAN CORPUSCULAR HGB 26.4 pg (27.0-31.0); MEAN CORPUSCULAR HGB CONC 32.6 g/dl (33.0-37.0); MEAN PLATELET VOLUME 11.8 fl (9.6-12.3); MONO # 0.7 10*3/uL (0.1-1.0); MONO % 13.4 % (3.0-9.0); NEUT # 3.2 10*3/uL (2.3-7.9); NEUT % 58.5 % (47.0-73.0); PLATELET COUNT AUTOMATED 201 10*3/uL (130-400); RED BLOOD COUNT 4.17 10*6/uL (4.10-5.10); RED CELL DISTRI WIDTH 13.2 % (0-14.5); WHITE BLOOD COUNT 5.4 10*3/uL (4.8-10.8)
[2017-08-25 07:16] LABS: ALBUMIN 3.5 gm/dl (3.1-4.5); BUN 13 mg/dl (7-24); CHLORIDE 98 mmol/L (98-107); POTASSIUM 3.1 mmol/L (3.5-5.1); SODIUM 138 mmol/L (136-145)
[2017-08-25 07:20] LABS: ALKALINE PHOSPHATASE 44 U/L (45-117); CREATININE 0.66 mg/dL (0.55-1.02); SGOT/AST 21 IU/L (3-35); SGPT/ALT 35 U/L (12-78); TOTAL PROTEIN 6.5 gm/dL (6.4-8.2)
[2017-08-25 08:00] VITALS: BP 180/60
[2017-08-25 12:00] VITALS: BP 133/70
[2017-08-25 16:00] VITALS: BP 154/60
[2017-08-25 20:00] VITALS: BP 158/50
[2017-08-26 00:17] VITALS: BP 149/42
[2017-08-26 06:36] LABS: BASO # 0.1 10*3/uL (0.0-0.1); BASO % 1.5 % (0.0-1.0); EOS # 0.3 10*3/uL (0.0-0.4); EOS % 5.5 % (1.0-4.0); HEMATOCRIT 33.6 % (37.0-47.0); HEMOGLOBIN 10.6 g/dl (12.0-16.0); LYMPH % 20.4 % (27.0-41.0); MEAN CELL VOLUME 82.8 fl (81.0-99.0); MEAN CORPUSCULAR HGB 26.1 pg (27.0-31.0); MEAN CORPUSCULAR HGB CONC 31.5 g/dl (33.0-37.0); MEAN PLATELET VOLUME 11.7 fl (9.6-12.3); MONO # 0.7 10*3/uL (0.1-1.0); MONO % 14.3 % (3.0-9.0); NEUT # 2.7 10*3/uL (2.3-7.9); NEUT % 58.1 % (47.0-73.0); PLATELET COUNT AUTOMATED 200 10*3/uL (130-400); RED BLOOD COUNT 4.06 10*6/uL (4.10-5.10); RED CELL DISTRI WIDTH 13.2 % (0-14.5); WHITE BLOOD COUNT 4.7 10*3/uL (4.8-10.8)
[2017-08-26 06:37] LABS: ALBUMIN 3.4 gm/dl (3.1-4.5); BUN 16 mg/dl (7-24); CHLORIDE 97 mmol/L (98-107); SODIUM 139 mmol/L (136-145)
[2017-08-26 06:40] LABS: ALKALINE PHOSPHATASE 40 U/L (45-117); CREATININE 0.72 mg/dL (0.55-1.02); SGOT/AST 16 IU/L (3-35); SGPT/ALT 28 U/L (12-78); TOTAL PROTEIN 6.2 gm/dL (6.4-8.2)
[2017-08-26 08:00] VITALS: BP 166/65
[2017-08-26 12:00] VITALS: BP 136/46
[2017-08-26] MEDS ORDERED: LASIX40 MG PO (12:16)
[2017-08-26] MEDS ORDERED: LISINOPRIL10 M1 PO (12:16)
== END 2017-08-26 13:38 | disposition home or self-care (01) | DRG 291 ==
LOC: ED 16:03 → 5E 19:40 → EDHOLD 19:40 → 5E 20:07
PROVIDERS: Internal Medicine; Internal Medicine Critical Care Medicine; Nurse Practitioner Family
DX: I11.0 Hypertensive heart disease with heart failure (principal); J18.1 Lobar pneumonia, unspecified organism; E11.51 Type 2 diabetes mellitus with diabetic peripheral angiopathy without gangrene; E87.5 Hyperkalemia; I24.8 Other forms of acute ischemic heart disease; I50.41 Acute combined systolic (congestive) and diastolic (congestive) heart failure; G30.1 Alzheimer's disease with late onset; F02.80 Dementia in other diseases classified elsewhere, unspecified severity, without behavioral disturbance, psychotic disturbance, mood disturbance, and anxiety; E78.2 Mixed hyperlipidemia; R62.7 Adult failure to thrive; I08.2 Rheumatic disorders of both aortic and tricuspid valves; D72.819 Decreased white blood cell count, unspecified; E87.6 Hypokalemia; Z79.01 Long term (current) use of anticoagulants; Z79.4 Long term (current) use of insulin; Z79.82 Long term (current) use of aspirin; Z79.899 Other long term (current) drug therapy; I25.2 Old myocardial infarction; Z90.710 Acquired absence of both cervix and uterus; Z88.8 Allergy status to other drugs, medicaments and biological substances; Z82.49 Family history of ischemic heart disease and other diseases of the circulatory system